=== PATIENT | female | born 1950 | race Caucasian/White ===

== ENCOUNTER 2016-09-09 09:11 | Emergency (ER) | payer BC ==
[2016-09-09 10:01] LABS: BASOPHILS 0.5 % (0.0-2.0); EOSINOPHILS 2.4 % (0.0-6.0); EOSINOPHILS# 0.1 X 10^3uL (0.0-0.4); HEMATOCRIT 47.5 % (36.0-48.0); HEMOGLOBIN 16.3 g/dL (12.0-16.0); LYMPHOCYTES 14.9 % (20.0-40.0); LYMPHOCYTES# 0.8 X 10^3uL (0.8-3.8); MEAN CELL VOLUME 87.9 fL (80.0-100.0); MEAN CORPUS. HGB CONCENTRATION 34.2 g/dL (32.0-36.0); MEAN CORPUSCULAR HEMOGLOBIN 30.1 pg (29.0-35.0); MEAN PLATELET VOLUME 8.6 fL (7.4-10.4); MONOCYTES 9.6 % (2.0-10.0); MONOCYTES# 0.5 X 10^3uL (0.2-1.0); NEUTROPHILS 72.6 % (54.0-75.0); RED BLOOD COUNT 5.4 X 10^6uL (4.20-6.10); RED CELL DISTRIBUTION WIDTH 12.5 % (11.5-14.5); WHITE BLOOD COUNT 5.4 X 10^3uL (3.9-10.7)
[2016-09-09 10:09] LABS: A/G RATIO 1.4; ALBUMIN 4.4 g/dL (3.5-5.0); BILIRUBIN, TOTAL 1.3 mg/dL (0.2-1.3); CALCIUM 9.1 mg/dL (8.4-10.2); POTASSIUM 3.8 mmol/L (3.5-5.1); TOTAL PROTEIN 7.6 g/dL (6.3-8.2)
--- NOTE | 2016-09-09 11:07 | ER NURSING DOCUMENTATION ---
Nurse's Notes [facility] Name:Kim Lopez Age:65 yrs Sex:Female :1950 Arrival Date:09/09/2016 Time:09:11 Bed1 Private MD: Diagnosis:Dehydration Presentation: 09/09 09:20 Acuity: REJI 4 st 09:24 Presenting complaint: Patient states: pt states she woke up this Am feeling shake st flushed and a little nauseated. Pt denies any pain. Pt came up from [place] yesterday evening. Transition of care: Home. 09:24 Method Of Arrival: Private Vehicle st 09:37 Acuity: REJI 3 st Triage Assessment: 09:26 General: Appears in no apparent distress, Behavior is cooperative. Pain: Denies pain. st Cardiovascular: No deficits noted. Respiratory: No deficits noted. GI: Abdomen is non- distended Abd is soft and non tender X 4 quads. Reports nausea. Musculoskeletal: pt has no troubles with walking or movement. Reports feeling shake. Historical: - Allergies: PENICILLINS; - Home Meds: 1. Xanax Oral 2. hormon replacment - PMHx: hyatal hernia; hemeragic gastritis; - PSHx: None; - Tetanus: < 10 years. - Ebola Screening: : Patient denies exposure to infectious person. Patient denies travel to an Ebola-affected area in the 21 days before illness onset. . - Immunization history: Pneumococcal vaccine status is unknown. - Social history: Smoking status: Patient states was never smoker of tobacco. Patient/guardian denies using alcohol, marijuana. Screenin:28 Infectious Disease Risk None. Abuse screen: Denies threats or abuse. Denies injuries st from another. pt feels safe at home. Nutritional screening: No deficits noted. Assessment: 09:29 General: pt had a colonoscopy and a endoscopy 2 days ago but had no symptoms post st procedure. . Vital Signs: 09:28 BP 136 / 91; Pulse 88; Resp 18; Temp 98.0; Pulse Ox 92% on R/A; Pain 0/10; st ED Course: 09:13 Patient arrived in ED. lm3 09:18 José Miguel Nagel MD is Attending Physician. tl1 09:20 Jacquelyn Dolan RN is Primary Nurse. st 09:[address] 09:28 Valuables Remains with patient Patient has correct armband on for positive st identification. Bed in low position. 09:39 Urine collected. Clean catch specimen. st 09:53 Inserted peripheral IV: 20 gauge in left antecubital area and blood collected. st Administered Medications: 09:53 Drug: NS 0.9% 1000 ml; Route: IV; Rate: bolus; Site: left antecubital; st 11:05 Follow up: IV Status: Completed infusion; IV Intake: 800ml st Point of Care Testing: Urine Dip: 09:57 pH: 5.5; ; Specific [place]: 1.005; Ketones: Negative; Glucose: Negative; Protein: st Negative; Leukocytes: Negative; Nitrite: Negative ; Blood: Non Hemolyzed Trace; Bilirubin: Negative ; Urobilinogen: Normal Intake: 11:05 IV: 800ml; Total: 800ml. st Outcome: 10:59 Discharge ordered by . tl1 11:05 Discharged to home ambulatory. st 11:05 Condition: improved 11:05 Discharge instructions given to patient, Instructed on discharge instructions, follow up and referral plans. 11:05 IV D/Sanjay 11:06 Patient [address] the ED. st Addendum: 09/11/2016 18:25 Addendum: Fallow up call: bad number. st Signatures: Jacquelyn Dolan, RN José Miguel Gray MD MD tl1 Calista Forte [email or web address]
--- NOTE | 2016-09-09 11:07 | ER PHYSICIAN DOCUMENTATION ---
Physician Documentation [facility] Name:Kim Lopez Age:65 yrs Sex:Female :1950 Arrival Date:09/09/2016 Time:09:11 Bed1 Private MD: José Miguel Arenas Disposition: 09/09 11:12 Chart complete. tl1 Disposition: 09/09/16 10:59 Discharged to Home/Self Care. Impression: Dehydration. - Condition is Good. - Discharge Instructions: DEHYDRATION (7y-Adult). - Medical Reconciliation form form. - Follow up: Private Physician; When: 2 - 3 days; Reason: Recheck today's complaints. - Problem is new. - Symptoms have improved. HPI: 09:21 This 65 yrs old Female presents to ER with complaints of General malaise and tl1 shakiness.. 09:21 She lives in [place]. She had a colonoscopy 2 days ago, and is generally healthy. She tl1 came up to [place] yesterday and this morning awakened feeling fine, but when she took her dog out for a timothy this morning, she noticed a vague weakness in both legs and started feeling shaky with mild general weakness and nausea. She became mildly diaphoretic and felt bad enough that she thought she might pass out and that she should come to the ED. Did have 2 loose stools yesterday and has been urinating more than usual, with no infectious symptoms. No CP or dyspnea. No palpitations. About 10 years ago she had a bout of hypokalemia but did not apparently receive any diagnosis. No f/c/s. No melena, hematochezia or hematemesis. No vertigo. No focal [employer] symptoms. Historical: - Allergies: PENICILLINS; - Home Meds: 1. Xanax Oral 2. hormon replacment - PMHx: hyatal hernia; hemeragic gastritis; - PSHx: None; - Tetanus: < 10 years. - Ebola Screening: : Patient denies exposure to infectious person. Patient denies travel to an Ebola-affected area in the 21 days before illness onset. . - Immunization history: Pneumococcal vaccine status is unknown. - Social history: Smoking status: Patient states was never smoker of tobacco. Patient/guardian denies using alcohol, marijuana. ROS: 11:05 Constitutional: Positive for fatigue, malaise. tl1 11:05 Cardiovascular: Negative for chest pain, palpitations, paroxysmal nocturnal dyspnea. 11:05 Respiratory: Negative for cough, dyspnea on exertion, shortness of breath, wheezing. 11:05 Abdomen/GI: Positive for nausea, Negative for vomiting, diarrhea, abdominal cramps, abdominal distension, hematemesis, black/tarry stool, rectal bleeding. 11:05 : Negative for urinary symptoms. 11:05 Neuro: Negative for altered mental status, headache, numbness, speech changes, near syncope. Exam: 11:05 Constitutional: The patient appears in no acute distress, alert, non-diaphoretic, tl1 non-toxic, well developed, well hydrated, well groomed, well nourished. 11:05 Head/face: Exam is negative for acute changes. 11:05 Eyes: Exam is negative for acute changes. 11:05 ENT: Mouth: Oral mucosa: pink and intact, dry. 11:05 Neck: ROM/movement: no acute changes. 11:05 Chest/axilla: Exam negative for acute changes. 11:05 Cardiovascular: Rate: normal, Rhythm: regular, Heart sounds: normal. 11:05 Respiratory: Respirations: normal, Breath sounds: are normal. 11:05 Abdomen/GI: Inspection: abdomen appears normal, Bowel sounds: normal, Palpation: abdomen is soft and non-tender. 11:05 Skin: Exam negative for acute changes. 11:05 Neuro: grossly normal. Vital Signs: 09:28 BP 136 / 91; Pulse 88; Resp 18; Temp 98.0; Pulse Ox 92% on R/A; Pain 0/10; st MDM: 09:21 Patient medically screened. tl1 09:37 Patient medically screened. tl1 09/09 10:04 Order name: CBC AUTO DIF, MDIF/RMOR IF IND; Complete Time: 10:58 EDMS 09/09 10:42 Interpretation: WHITE BLOOD COUNT 5.4; HEMOGLOBIN 16.3; HEMATOCRIT 47.5; PLATELET COUNT tl1 215. 09/09 10:10 Order name: COMPREHENSIVE METABOLIC PANEL; Complete Time: 10:58 EDMS 09/09 10:42 Interpretation: Normal: SODIUM 140; POTASSIUM 3.8; CHLORIDE 106; CARBON DIOXIDE 26; tl1 GLUCOSE 104; BLOOD UREA NITROGEN 20; CREATININE 1.0. Dispensed Medications: 09:53 Drug: NS 0.9% 1000 ml; Route: IV; Rate: bolus; Site: left antecubital; st 11:05 Follow up: IV Status: Completed infusion; IV Intake: 800ml st Point of Care Testing: Urine Dip: 09:57 pH: 5.5; ; Specific [place]: 1.005; Ketones: Negative; Glucose: Negative; Protein: st Negative; Leukocytes: Negative; Nitrite: Negative ; Blood: Non Hemolyzed Trace; Bilirubin: Negative ; Urobilinogen: Normal Signatures: Jacquelyn Dolan, RN José Miguel Gray MD MD tl1
== END 2016-09-09 11:06 | disposition home or self-care (01) ==
LOC: ER 09:11
DX: E86.0 Dehydration (principal); R53.83 Other fatigue; R53.81 Other malaise; R53.1 Weakness; R11.0 Nausea
CPT/HCPCS: 80053; 85025; 96360; 99284